=== PATIENT | female | born 1950 | race Caucasian/White ===

== ENCOUNTER 2017-11-10 21:23 | Inpatient (IN) | payer MEDICARE ==
[~2017-11-10] VITALS: Ht 165.1 cm; Wt 57.3 kg
[~2017-11-10 21:23] MED LIST: ALPR1TAB2 PO; COU7.5T PO; FLEC100T2 PO; LOSA100T28 PO; MULT-1085 PO; NITR0.4T48 SL; TEMA15CA PO
[2017-11-10 22:02] LABS: BASOPHILS % (AUTO) 0.5 % (0-1); EOSINOPHILS # (AUTO) 0.1 X10'3 (0-0.9); HEMATOCRIT 39.2 % (35.0-45.0); HEMOGLOBIN 13.6 g/dl (12.0-16.0); LYMPHOCYTES # (AUTO) 2.4 X10'3 (1.1-4.8); LYMPHOCYTES % (AUTO) 36.8 % (21-51); MEAN CORPUSCULAR HEMOGLOBIN 32.8 PG (27.0-31.0); MEAN CORPUSCULAR HGB CONC 34.7 % (33.0-36.5); MEAN CORPUSCULAR VOLUME 94.6 FL (78-98); MEAN PLATELET VOLUME 7.2 FL (7.4-10.4); MONOCYTES # (AUTO) 0.8 X10'3 (0-0.9); MONOCYTES % (AUTO) 11.4 % (2-12); NEUTROPHILS # (AUTO) 3.3 X10'3 (1.8-7.7); NEUTROPHILS % (AUTO) 49.3 % (42-75); PLATELET COUNT 329 X10'3 (140-440); RED BLOOD COUNT 4.14 X10'6 (4.20-5.60); RED CELL DISTRIBUTION WIDTH 13.8 % (11.5-14.5); WHITE BLOOD COUNT 6.6 X10'3 (4.5-11.0)
[2017-11-10 22:14] LABS: INR 2.2 INR; PARTIAL THROMBOPLASTIN TIME 32 SECONDS (22-32); PROTHROMBIN TIME 22.1 SECONDS (9.0-12.0)
[2017-11-10 22:18] LABS: ALANINE AMINOTRANSFERASE 38 U/L (12-78); ALBUMIN 3.9 G/DL (3.4-5.0); ALKALINE PHOSPHATASE 47 IU/L (46-116); ANION GAP 14 (8-16); ASPARTATE AMINO TRANSFERASE 25 U/L (10-37); BILIRUBIN,TOTAL 0.4 MG/DL (0.1-1.0); BLOOD UREA NITROGEN 25 MG/DL (7-18); BUN/CREATININE RATIO 17.4 (6.6-38.0); CHLORIDE 104 MMOL/L (99-107); CREATININE 1.44 MG/DL (0.40-0.90); GLUCOSE 131 MG/DL (70-104); POTASSIUM 3.8 MMOL/L (3.5-5.1); SODIUM 141 MMOL/L (135-145); TOTAL CARBON DIOXIDE 23.2 MMOL/L (24-32); TOTAL PROTEIN 7.7 G/DL (6.4-8.2); eGFR 36 ML/MIN
[2017-11-10] MEDS ORDERED: ALEN70TA48 PO (23:46)
[2017-11-11] VITALS (8 sets, daily range): BP systolic 126–150; BP diastolic 78–89
[2017-11-11] MEDS ORDERED: morphine 4 MG/ML inj SYRINge IV PRN ×2 (01:50)
[2017-11-11] MEDS ORDERED: aminophylline 250mg/10ml inj. IV PRN (01:50)
[2017-11-11] MEDS ORDERED: potassium Cl 40MEQ/NS 500ml 500 ML IV PRN ×2 (01:50)
[2017-11-11] MEDS ORDERED: magnesium hydroxide 30ml (MOM) UD suspension PO PRN (01:50)
[2017-11-11] MEDS ORDERED: potassium Cl 20 mEq SR tablet PO PRN ×2 (01:50)
[2017-11-11] MEDS ORDERED: normal saline 1000ml 1,000 ML IV SCH (01:50)
[2017-11-11] MEDS ORDERED: magnesium Cl slow-release 64mg tablet PO PRN (01:50)
[2017-11-11] MEDS ORDERED: acetaminophen 325mg tablet PO PRN (01:50)
[2017-11-11] MEDS ORDERED: nitroGLYCERIN 0.4mg SUBLingual tab SL PRN ×2 (01:50)
[2017-11-11] MEDS ORDERED: magnesium 2GM in 50ml NS 50 ML IV PRN (01:50)
[2017-11-11] MEDS ORDERED: regadenoson 0.4mg/5ml syringe IV ONE ×2 (01:50→09:03)
[2017-11-11] MEDS ORDERED: ondansetron/PF 4mg/2ml inj IV PRN (01:50)
[2017-11-11] MEDS ORDERED: magnesium 4gm in 100ml NS 100 ML IV PRN (01:50)
[2017-11-11] MEDS ORDERED: mag hydrox/Alum hydrox/simeth 30ml oral suspension PO PRN (01:50)
[2017-11-11] MEDS ORDERED: metoprolol tartrate 1mg/ml inj IV PRN (01:50)
[2017-11-11] MEDS: flecainide 50mg tablet PO SCH ×2 (05:33→08:00)
[2017-11-11 07:19] LABS: PROTHROMBIN TIME 20.1 SECONDS (9.0-12.0)
[2017-11-11] MEDS ORDERED: K and/or MAG REPLACEMENT MC SCH (08:00)
[2017-11-11] MEDS ORDERED: flecainide 50mg tablet PO SCH (08:00)
[2017-11-11] MEDS ORDERED: TAM50T PO (08:45)
[2017-11-11] MEDS ORDERED: aminophylline inj. 0 ML IV ONE (09:03)
[2017-11-11] MEDS ORDERED: warfarin 7.5mg tablet PO SCH (21:00)
== END 2017-11-11 16:28 | disposition home or self-care (01) | DRG 313 ==
LOC: ER 21:23 → ED HOLD 11-11 01:50
PROVIDERS: ADMIT Internal Medicine; ATTEND Internal Medicine
PROC: 4A02XM4 Measurement of Cardiac Total Activity, External Approach (ICD-10-PCS; principal; 2017-11-11)
PROC: 3E073KZ Introduction of Other Diagnostic Substance into Coronary Artery, Percutaneous Approach (ICD-10-PCS; 2017-11-11)
DX: R07.89 Other chest pain (principal); I25.10 Atherosclerotic heart disease of native coronary artery without angina pectoris; D68.9 Coagulation defect, unspecified; I48.2 Chronic atrial fibrillation; E78.5 Hyperlipidemia, unspecified; I12.9 Hypertensive chronic kidney disease with stage 1 through stage 4 chronic kidney disease, or unspecified chronic kidney disease; N18.2 Chronic kidney disease, stage 2 (mild); I34.0 Nonrheumatic mitral (valve) insufficiency; M81.0 Age-related osteoporosis without current pathological fracture; Z79.01 Long term (current) use of anticoagulants; Z79.83 Long term (current) use of bisphosphonates; Z82.49 Family history of ischemic heart disease and other diseases of the circulatory system; Z82.5 Family history of asthma and other chronic lower respiratory diseases; Z87.01 Personal history of pneumonia (recurrent); Z90.710 Acquired absence of both cervix and uterus
CPT/HCPCS: 36415; 71045; 78452; 80053; 84484; 85025; 85610; 85730; 87070; 93005; 93017; 93306; 99285; A9500; J0280; J7030

== ENCOUNTER 2020-09-30 09:27 | Day surgery (SDC) | payer MEDICARE, OTHER ==
[~2020-09-30] VITALS: Ht 165.1 cm; Wt 54.2 kg
[~2020-09-30 09:27] MED LIST changes: +ALEN70TA60 PO; -ALPR1TAB2 PO; -FLEC100T2 PO; -LOSA100T28 PO; +TAM50T PO; -TEMA15CA PO
[2020-09-30 09:50] VITALS: BP 110/45
[2020-09-30] MEDS ORDERED: albumin 25% 100mL bottle x 1 IV PRN (10:05)
[2020-09-30] MEDS ORDERED: ATOR10TA87 PO (10:24)
[2020-09-30] MEDS ORDERED: WARF2.5T82 PO (10:26)
[2020-09-30] MEDS ORDERED: METO-395 PO (10:28)
[2020-09-30 10:35] VITALS: BP 106/84
[2020-09-30 10:38] VITALS: BP 154/74
[2020-09-30 10:46] VITALS: BP 108/69
[2020-09-30 11:00] VITALS: BP 110/78
[2020-09-30] MEDS ORDERED: ALEN70TA60 PO (11:00)
[2020-09-30] MEDS ORDERED: TRAZ-251 PO (11:02)
[2020-09-30] MEDS ORDERED: LEVO25TA7 PO (11:02)
[2020-09-30] MEDS ORDERED: SPIR25TA5 PO (11:04)
[2020-09-30 11:15] VITALS: BP 108/72
== END 2020-09-30 11:30 | disposition home or self-care (01) ==
LOC: SSTAY O 09:27
PROVIDERS: ATTEND Radiology Vascular & Interventional Radiology
DX: J90 Pleural effusion, not elsewhere classified (principal); M81.0 Age-related osteoporosis without current pathological fracture; I48.91 Unspecified atrial fibrillation; E78.5 Hyperlipidemia, unspecified; F41.9 Anxiety disorder, unspecified; F32.9 Major depressive disorder, single episode, unspecified; G47.00 Insomnia, unspecified; I35.0 Nonrheumatic aortic (valve) stenosis; Z79.01 Long term (current) use of anticoagulants; Z87.01 Personal history of pneumonia (recurrent); Z90.710 Acquired absence of both cervix and uterus; Z98.890 Other specified postprocedural states; Z88.8 Allergy status to other drugs, medicaments and biological substances; Z79.899 Other long term (current) drug therapy; Z82.49 Family history of ischemic heart disease and other diseases of the circulatory system
CPT/HCPCS: 32555; 36415; 71045; 85610